=== PATIENT | female | born 1950 | race Caucasian/White ===

== ENCOUNTER 2017-12-04 14:08 | Outpatient (CLI) | payer MEDICARE ==
[2017-12-04 18:20] LABS: BASOPHILS # (AUTO) 0.1 10^3/uL (0.0-0.1); BASOPHILS % (AUTO) 1.2 %; EOSINOPHILS # (AUTO) 0.2 10^3/uL (0.0-0.7); HGB - HEMOGLOBIN 13.2 g/dL (12.0-16.0); LYMPHOCYTES # (AUTO) 1.4 10^3/uL (1.5-3.5); LYMPHOCYTES % (AUTO) 25.2 %; MEAN CORPUSCULAR HEMOGLOBIN 31.1 pg (27.0-31.0); MEAN CORPUSCULAR HGB CONC 33.1 g/dL (32.0-36.0); MEAN PLATELET VOLUME 8.2 fL (7.9-10.8); MONOCYTES # (AUTO) 0.5 10^3/uL (0.0-1.0); MONOCYTES % (AUTO) 9.2 %; NEUTROPHILS # (AUTO) 3.4 10^3/uL (1.5-6.6); NEUTROPHILS % (AUTO) 60.4 %; PLT - PLATELET COUNT 183 10^3/uL (130-450); RED BLOOD COUNT 4.23 10^6/uL (4.20-5.40); RED CELL DISTRIBUTION WIDTH 13.7 % (12.0-15.0); WHITE BLOOD COUNT 5.6 x10^3/uL (4.8-10.8)
[2017-12-04 18:47] LABS: ALBUMIN 4.2 g/dL (3.2-5.5); ALBUMIN/GLOBULIN RATIO 1.6 (1.0-2.2); ALKALINE PHOSPHATASE 65 IU/L (42-121); ALT ALANINE AMINOTRANSFERASE 17 IU/L (10-60); AST ASPARTATE AMINOTRANSFERASE 19 IU/L (10-42); BILIRUBIN,TOTAL 0.5 mg/dL (0.2-1.0); BUN - BLOOD UREA NITROGEN 11 mg/dL (6-20); CALCIUM 8.8 mg/dL (8.5-10.3); CARBON DIOXIDE - CO2 28 mmol/L (21-32); CHLORIDE 104 mmol/L (101-111); CREATININE 0.7 mg/dL (0.4-1.0); GFR - MDRD 84 (>89); GLUCOSE 93 mg/dL (70-100); SODIUM 138 mmol/L (135-145); TOTAL PROTEIN 6.8 g/dL (6.7-8.2)
== END 2017-12-04 14:09 | disposition home or self-care (01) ==
LOC: LAB.F 14:08
PROVIDERS: ATTEND Nurse Practitioner Psychiatric/Mental Health
DX: F41.1 Generalized anxiety disorder (principal); F31.9 Bipolar disorder, unspecified; Z79.899 Other long term (current) drug therapy
CPT/HCPCS: 36415; 80053; 80156; 81001; 81003; 85025; 87086

== ENCOUNTER 2017-12-05 16:30 | Outpatient (CLI) | payer MEDICARE ==
[2017-12-06 12:36] LABS: BILIRUBIN,URINE NEGATIVE (NEGATIVE); CLARITY,URINE CLEAR (CLEAR); GLUCOSE, URINE (UA) NEGATIVE (NEGATIVE); KETONES,URINE (UA) NEGATIVE (NEGATIVE); LEUKOCYTE ESTERASE, URINE NEGATIVE (NEGATIVE); NITRITE,URINE NEGATIVE (NEGATIVE); OCCULT BLOOD,URINE NEGATIVE (NEGATIVE); PH,URINE 6.5 PH (5.0-7.5); PROTEIN,URINE NEGATIVE (NEGATIVE); UROBILINOGEN,URINE 0.2 (NORMAL) E.U./dL (NORMAL)
== END 2017-12-05 16:31 | disposition home or self-care (01) ==
LOC: LAB.R 16:30
PROVIDERS: ATTEND Nurse Practitioner Psychiatric/Mental Health
DX: F41.1 Generalized anxiety disorder (principal); F31.9 Bipolar disorder, unspecified; Z79.899 Other long term (current) drug therapy
CPT/HCPCS: 81003

== ENCOUNTER 2017-12-27 13:36 | Outpatient (CLI) | payer MEDICARE, BC ==
[2017-12-27 17:21] LABS: BASOPHILS % (AUTO) 0.9 %; EOSINOPHILS # (AUTO) 0.1 10^3/uL (0.0-0.7); EOSINOPHILS % (AUTO) 3.1 %; HGB - HEMOGLOBIN 14.2 g/dL (12.0-16.0); LYMPHOCYTES # (AUTO) 1.1 10^3/uL (1.5-3.5); LYMPHOCYTES % (AUTO) 23.2 %; MEAN CORPUSCULAR HEMOGLOBIN 30.3 pg (27.0-31.0); MEAN CORPUSCULAR HGB CONC 32.9 g/dL (32.0-36.0); MEAN PLATELET VOLUME 7.6 fL (7.9-10.8); MONOCYTES # (AUTO) 0.4 10^3/uL (0.0-1.0); MONOCYTES % (AUTO) 7.8 %; NEUTROPHILS # (AUTO) 3.1 10^3/uL (1.5-6.6); PLT - PLATELET COUNT 174 10^3/uL (130-450); RED BLOOD COUNT 4.68 10^6/uL (4.20-5.40); RED CELL DISTRIBUTION WIDTH 13.5 % (12.0-15.0); WHITE BLOOD COUNT 4.8 x10^3/uL (4.8-10.8)
[2017-12-27 17:32] LABS: ALBUMIN 4.2 g/dL (3.2-5.5); ALBUMIN/GLOBULIN RATIO 1.7 (1.0-2.2); ALKALINE PHOSPHATASE 65 IU/L (42-121); ALT ALANINE AMINOTRANSFERASE 23 IU/L (10-60); AST ASPARTATE AMINOTRANSFERASE 25 IU/L (10-42); BILIRUBIN,TOTAL 0.9 mg/dL (0.2-1.0); BUN - BLOOD UREA NITROGEN 13 mg/dL (6-20); CALCIUM 9.1 mg/dL (8.5-10.3); CARBAMAZEPINE (TEGRETOL) 6.8 ug/mL; CARBON DIOXIDE - CO2 29 mmol/L (21-32); CHLORIDE 103 mmol/L (101-111); CREATININE 0.8 mg/dL (0.4-1.0); GFR - MDRD 72 (>89); GLUCOSE 91 mg/dL (70-100); SODIUM 139 mmol/L (135-145); TOTAL PROTEIN 6.7 g/dL (6.7-8.2)
== END 2017-12-27 13:37 | disposition home or self-care (01) ==
LOC: LAB.F 13:36
PROVIDERS: ATTEND Nurse Practitioner Psychiatric/Mental Health
DX: F41.1 Generalized anxiety disorder (principal); F31.9 Bipolar disorder, unspecified
CPT/HCPCS: 36415; 80053; 80156; 85025

== ENCOUNTER 2021-12-30 10:56 | Outpatient (CLI) | payer MEDICARE, BC ==
[2021-12-30 14:44] LABS: BASOPHILS % (AUTO) 0.6 %; EOSINOPHILS # (AUTO) 0.2 10^3/uL (0.0-0.7); EOSINOPHILS % (AUTO) 2.3 %; HCT - HEMATOCRIT 42.9 % (37.0-47.0); LYMPHOCYTES # (AUTO) 1.9 10^3/uL (1.5-3.5); LYMPHOCYTES % (AUTO) 28.4 %; MEAN CORPUSCULAR HEMOGLOBIN 30.6 pg (27.0-31.0); MEAN CORPUSCULAR HGB CONC 32.6 g/dL (32.0-36.0); MEAN CORPUSCULAR VOLUME 93.9 fL (81.0-99.0); MEAN PLATELET VOLUME 10.7 fL (7.9-10.8); MONOCYTES # (AUTO) 0.8 10^3/uL (0.0-1.0); MONOCYTES % (AUTO) 11.7 %; NEUTROPHILS # (AUTO) 3.8 10^3/uL (1.5-6.6); NEUTROPHILS % (AUTO) 56.3 %; PLT - PLATELET COUNT 184 10^3/uL (130-450); RED BLOOD COUNT 4.57 10^6/uL (4.20-5.40); RED CELL DISTRIBUTION WIDTH 12.4 % (12.0-15.0); WHITE BLOOD COUNT 6.8 x10^3/uL (4.8-10.8)
[2021-12-30 15:17] LABS: ALT ALANINE AMINOTRANSFERASE 11 IU/L (10-60); BUN - BLOOD UREA NITROGEN 18 mg/dL (6-20); CALCIUM 9.9 mg/dL (8.5-10.3); CARBON DIOXIDE - CO2 27 mmol/L (21-32); CHLORIDE 103 mmol/L (101-111); CHOL/HDL RATIO 2.9 (<4.4); CHOLESTEROL 165 mg/dL; CREATININE 0.9 mg/dL (0.4-1.0); GFR - MDRD 62 (>89); GLUCOSE 75 mg/dL (70-100); HDL CHOLESTEROL 56 mg/dL; LDL CHOLESTEROL,CALCULATED 83 mg/dL; LDL/HDL RATIO 1.5 (<4.4); SODIUM 138 mmol/L (135-145); TRIGLYCERIDES 129 mg/dL; VALPROIC ACID (DEPAKOTE) 35.5 ug/mL; VLDL CHOLESTEROL 26 mg/dL
== END 2021-12-30 10:57 | disposition home or self-care (01) ==
LOC: LAB.S 10:56
PROVIDERS: ATTEND Internal Medicine
DX: F31.9 Bipolar disorder, unspecified (principal); I10 Essential (primary) hypertension
CPT/HCPCS: 36415; 80048; 80061; 80164; 83721; 84443; 84460; 85025

== ENCOUNTER 2022-01-26 10:52 | Outpatient (CLI) | payer MEDICARE, BC ==
--- NOTE | 2022-01-28 08:26 | Mammography Report ---
BILATERAL DIGITAL SCREENING MAMMOGRAM 3D/2D: 01/26/2022 CLINICAL: Routine screening. Family history of breast cancer. Comparison is made to exams dated: 04/06/2017 mammogram, 11/26/2015 mammogram, 12/07/2015 mammogram, 12/25 mammogram, and 04/20/2011 mammogram - [facility]. There are scattered fibroglandular elemen ts in both breasts. No significant masses, calcifications, or other findings are seen in either breast. There has been no significant interval change. IMPRESSION: NEGATIVE There is no mammographic evidence of malignancy. A 1 year screening mammogram is recommended. This exam was interpreted at Station ID: [id number]. NOTE: For mammograms, a report in lay terms will be sent to the patient. Approximately 15% of breast malignancies will not be visualized mammographically. In the management of a palpable breast mass, a negative mammogram must not discourage biopsy of a clinically suspicious lesion. Electronically Signed By: Arnie De La Paz M.D. [facility] [place]01/27/2022 16:42:25 ACR BI-RADS Category 1: Negative 3341F PARENCHYMAL PATTERN: (A) - The breast(s) demonstrate(s) scattered fibroglandular densities. BI-RADS CATEGORY: (1) - 1 RECOMMENDATION: (ANNUAL) - Recommend routine annual screening mammography. [id number] 1 year screening LATERALITY: (B)
== END 2022-01-26 10:53 | disposition home or self-care (01) ==
LOC: DI.S 10:52
DX: Z12.31 Encounter for screening mammogram for malignant neoplasm of breast (principal); Z80.3 Family history of malignant neoplasm of breast

== ENCOUNTER 2022-02-08 12:38 | Outpatient (CLI) | payer MEDICARE, BC ==
--- NOTE | 2022-02-08 16:39 | DEXA Report ---
PROCEDURE: Dexa Spine and/or Hip INDICATIONS: OSTEOPENIA TECHNIQUE: Dual energy x-ray absorptiometry (DXA) was performed on a [employer] System. Regions measur ed are the AP Spine, femoral neck, and if needed forearm. COMPARISON: None. FINDINGS: Lumbar Spine: Bone Mineral Density 1.0 g/cm/cm,T score -1.2; osteopenia Left Hip: Bone Mineral Density 0.8 g/cm/cm,T score -1.5, osteopenia Impression: Osteopenia of the lumbar spine and left hip. Patients with diagnosis of osteoporosis or osteopenia should have regular bone mineral density assess ment. For those eligible for Medicare, routine testing is allowed once every 2 years. Testing frequ ency can be increased for patients who have rapidly progressing disease or for those who are receivin g medical therapy to restore bone mass. Reviewed by: Renan Pierre MD on 02/08/2022 4:38 PM PDT Approved by: Renan Pierre MD on 02/08/2022 4:38 PM PDT Station ID: [id number]
== END 2022-02-08 12:39 | disposition home or self-care (01) ==
LOC: DI 12:38
PROVIDERS: ATTEND Internal Medicine
DX: M85.89 Other specified disorders of bone density and structure, multiple sites (principal)

== ENCOUNTER 2023-12-22 14:02 | Outpatient (CLI) | payer MEDICARE, BC ==
--- NOTE | 2023-12-25 10:31 | Mammography Report ---
BILATERAL DIGITAL SCREENING MAMMOGRAM 3D/2D: 12/22/2023 CLINICAL: Routine screening. Comparison is made to exams dated: 01/26/2022 mammogram - [facility], 12/07/2015 mamm ogram, 04/06/2017 mammogram, 11/26/2015 mammogram, and 12/25/2013 mammogram - [facility]. There are scattered areas of fibroglandular density in both breasts (category b / 25%-50% glandular t issue). No significant masses, calcifications, or other findings are seen in either breast. There has been no significant interval change. IMPRESSION: NEGATIVE There is no mammographic evidence of malignancy. A 1 year screening mammogram is recommended. Based on the Tyrer Cuzick model (a risk assessment model) the patient's lifetime risk is 4.8% and her 10 year risk is 3.3%. According to the ACR, ACS, and NCCN guidelines, an annual breast MRI exam abhishek g with mammogram is recommended if the patient's lifetime risk is 20% or greater. This exam was interpreted at Station ID: [id number]. NOTE: For mammograms, a report in lay terms will be sent to the patient. Approximately 15% of breast malignancies will not be visualized mammographically. In the management of a palpable breast mass, a negative mammogram must not discourage biopsy of a clinically suspicious lesion. Electronically Signed By: Chip Miranda M.D. [facility]:12/22/2023 15:52:35 ACR BI-RADS Category 1: Negative 3341F PARENCHYMAL PATTERN: (A) - The breast(s) demonstrate(s) scattered fibroglandular densities. BI-RADS CATEGORY: (1) - 1 Mammogram [id number] 1 year screening LATERALITY: (B)
== END 2023-12-22 14:03 | disposition home or self-care (01) ==
LOC: DI 14:02
DX: Z12.31 Encounter for screening mammogram for malignant neoplasm of breast (principal); R92.323 Mammographic fibroglandular density, bilateral breasts

== ENCOUNTER 2024-07-27 17:38 | Emergency (ER) | payer MEDICARE, BC ==
[2024-07-27 18:01] VITALS: BP 215/105; O2SAT 97
--- NOTE | 2024-07-27 19:27 | ED Physician Documentation ---
PD HPI DYSPNEA - Stated complaint Stated Complaint: HIGH BP - Chief complaint Chief Complaint: Cardiac - Additional information Additional information: 73-year-old female presents emergency department for hypertension. Patient says that she does not normally take her blood pressure but over the last week or so she started taking her blood pressure at home because her has been taking his blood pressure. [facility] by her primary care provider they asked her how high her blood pressures have been and asked her to take blood pressure at that point in time which because patient has significant amount of anxiety and her blood pressure was 209/111. Upon arrival to the emergency department patient reports that she does not normally of her house and she is very anxious to be here and her blood pressure was 215/105. She denies any chest pain shortness of breath vision changes neck pain or any other concerning symptoms. When I look at her vital signs over the last week blood pressure has been ranging from systolically 130s to 190s but has not been sustaining 190s over the last week. Patient is on propranolol and lisinopril for her blood pressure. PD PAST MEDICAL HISTORY - Past Medical History Past Medical History: Yes Cardiovascular: Hypertension Respiratory: None Neuro: None Endocrine/Autoimmune: None GI: None MEASUREMENT SUPERINTENDENT: None : None Psych: Depression, Anxiety, Panic attacks Musculoskeletal: None Derm: None - Past Surgical History Past Surgical History: Yes General: Cholecystectomy - Present Medications Home Medications: Ambulatory Orders Medication Instructions Recorded Confirmed Calcium Carbonate [Calcium] 600 mg PO DAILY 07/27/24 07/27/24 Gabapentin [Neurontin] 600 mg PO HS 07/27/24 07/27/24 Lisinopril [Zestril] 10 mg PO DAILY 07/27/24 07/27/24 Propranolol [Inderal] 120 mg PO BID 07/27/24 07/27/24 - Allergies Allergies/Adverse Reactions: Allergies Allergy/AdvReac Type Severity Reaction Status Date / Time amoxicillin Allergy Rash Verified 07/27/24 17:45 apple Allergy Respiratory Verified 07/27/24 17:57 ciprofloxacin [From Cipro] Allergy Cramps Verified 07/27/24 17:57 erythromycin base Allergy Cramps Verified 07/27/24 17:57 honey Allergy Unknown Verified 07/27/24 17:57 lamotrigine Allergy Unknown Verified 07/27/24 17:57 milk Allergy Cramps Verified 07/27/24 17:57 peanut Allergy Respiratory Verified 07/27/24 17:57 potato Allergy Respiratory Verified 07/27/24 17:57 sulfamethoxazole Allergy Rash Verified 07/27/24 17:57 [From Bactrim] tree nut Allergy Respiratory Verified 07/27/24 17:57 trimethoprim [From Bactrim] Allergy Rash Verified 07/27/24 17:57 - Social History Does the pt smoke?: No Smoking Status: Never smoker Does the pt drink ETOH?: No Does the pt have substance abuse?: No - Immunizations Immunizations are current?: Yes - POLST Patient has POLST: No PD ED PE NORMAL - Vitals Vital signs reviewed: Yes - General General: Alert and oriented X 3, No acute distress, Well developed/nourished - HEENT HEENT: Atraumatic, PERRL - Neck Neck: Supple, no meningeal sign - Cardiac Cardiac: RRR, No murmur, No gallop, Strong equal pulses - Respiratory Respiratory: No respiratory distress, Clear bilaterally - Abdomen Abdomen: Normal bowel sounds, Soft, Non tender, Non distended, No organomegaly - Back Back: No CVA TTP - Derm Derm: Normal color, Warm and dry, No rash - Extremities Extremities: No edema - Neuro Neuro: Alert and oriented X 3, 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 She has absolutely no symptoms of high blood pressure but was told to come to the emergency department from triage nurse. Since she has been here her blood pressure has significantly improved over time coming down to systolically 170s. Unfortunately patient's RN did not document these vitals but I witnessed multiple systolic blood pressures of 170s and high 160s. Patient was told to follow-up with her primary care provider about today's ER visit that there is no further intervention warranted we did offer labs but she kindly declined she was told that if she wanted to increase her lisinopril 1 hour after taking blood pressure taking a second pill would be a safe option to help manage her hyperte nsion at home until she is able to get in with her primary care provider. Patient was told signs and symptoms of when to report back to the emergency department at this point time she is safe for discharge. Departure - Departure Disposition: 01 Home, Self Care Clinical Impression: Hypertension Qualifiers: Hypertension type: unspecified Qualified Code(s): I10 - Essential (primary) hypertension Instructions: DASH Plan Eat Heart Healthy Food, ED Hypertension Poss Comments: Thank you for trusting us with your care. Given that you have absolutely no symptoms from a high blood pressure believe that you are safe to discharge and follow-up with your primary care provider outpatient. I would only check your blood pressure once in the morning 1 hour after you take your blood pressure medications and then once in the evening 1 hour after you take your blood pressure medications. Taking it too much throughout the day can cause increased anxiety. If 1 hour after you have taken your blood pressure and it is greater than 130 systolically (the upper number) and you can take a second pill of your lisinopril. I think that it would be beneficial for your primary care provider to make high blood pressure medication adjustments. Please come back in if you are starting develop any chest pain shortness of breath vision changes or any other concerning emergent symptoms. Forms: PCP List Discharge Date/Time: 07/27/24 19:32
== END 2024-07-27 19:32 | disposition home or self-care (01) ==
LOC: ED 17:38
DX: I10 Essential (primary) hypertension (principal)
CPT/HCPCS: 99281